=== PATIENT | male | born 1945 | race Caucasian/White ===

== ENCOUNTER 2023-10-24 08:04 | Outpatient (CLI) | payer MEDICARE, OTHER | END 2023-10-24 08:05 | disposition home or self-care (01) | LOC: LAB.R 08:04 | PROVIDERS: ATTEND Nurse Practitioner | DX: L03.115 Cellulitis of right lower limb (principal) | CPT/HCPCS: 87070; 87205 ==

== ENCOUNTER 2023-10-24 16:49 | Emergency (ER) | payer MEDICARE, OTHER ==
--- NOTE | 2023-10-24 19:10 | ED Physician Documentation ---
History of Present Illness - Stated complaint Stated Complaint: RT LEG RASH - Chief complaint Chief Complaint: Ext Problem - Additonal information Additional information: 78-year-old male with history of eczema presents emergency department for right leg rash. Patient has already been seen by dermatology nurse practitioner Reema hirsch who started him on doxycycline, triamcinolone, mupirocin. Patient reports he was advised to come to the emergency department for further evaluation he has a history of cellulitis in that same leg does not report antibiotics he was prescribed in the past. He says he is unsure if he is having fevers or chills at home because he took his temperature after drinking a hot cup of coffee and it was around 100 101 Fahrenheit so he is unsure if that was true or not. Other than that he has denied any chills. He denies any pain to that right lower extremity he says that swelling started about 2 days ago but yesterday it increased in severity he said that he has been soaking in ice bath but his spots of eczema appear to be more purple in color.No calf pain no history of DVTs PD PAST MEDICAL HISTORY - Past Medical History Past Medical History: Yes Cardiovascular: Hypertension Neuro: None Endocrine/Autoimmune: None GI: None : None HEENT: Glaucoma Psych: None Musculoskeletal: None Derm: Eczema Other Past Medical History: melanoma - Past Surgical History Past Surgical History: Yes Ortho: Hip replacement - Allergies Allergies/Adverse Reactions: Allergies Allergy/AdvReac Type Severity Reaction Status Date / Time Penicillins AdvReac Hives Verified 10/24/23 17:03 - Social History Does the pt smoke?: No Smoking Status: Never smoker Does the pt drink ETOH?: Yes Does the pt have substance abuse?: No - Immunizations Immunizations are current?: Yes PD ED PE NORMAL - Vitals Vital signs reviewed: Yes - General General: Alert and oriented X 3, No acute distress, Well developed/nourished - Cardiac Cardiac: RRR, No murmur, No gallop, Strong equal pulses - Respiratory Respiratory: No respiratory distress, Clear bilaterally - Derm Derm: Other (RLE: 4-5 different 5cm non blanchable purpuric spots through RLE. RLE non pitting edema, no calf tenderness, no tenderness with palpation of skin, warm to touch) - Psych Psych: Normal mood, Normal affect Results - Vitals Vitals: Vital Signs - 24 hr 10/24/23 10/24/23 16:54 19:26 Temperature 36.4 C L Heart Rate 66 61 Respiratory 18 19 Rate Blood Pressure 159/121 H 172/110 H O2 Saturation 98 97 Oxygen O2 Source Room air PD Medical Decision Making - ED course ED course: 78-year-old male here for right lower extremity swelling and rash. I spoke with nurse practitioner Reema hirsch The nurse practitioner who sent him and and said that her main concern was that he was having pain out of proportion for her patient continues to decline any pain for myself and said that he was not having any pain at the clinic or at home. S she said she was also concerned about patient having a possible fever and is concern about possible necrotizing fasciitis. Given the patient is afebrile he is not having any pain for myself I have very low concern or suspicion of this. She did tumble and recommended doing a one-time dose of intramuscular Rocephin which I was agreeable to do we did a one-time dose of IM Rocephin patient was told to continue his doxycycline prescription as well as the topicals that she not had prescribed which is triamcinolone and mupirocin. He has a follow-up appointment with her on Monday and he was told to make sure that he does not miss this and he was given ER return precautions. Emphasized the importance of keeping his right lower extremity emphasize above his heart to help with swelling. Departure - Departure Disposition: 01 Home, Self Care Clinical Impression: Cellulitis of right lower extremity Condition: Good Instructions: Cellulitis Dc Comments: Thank you for trusting us with your care. We are treating you with a one-time dose of Rocephin for what is presumed to be cellulitis. Make sure that you frequently throughout the day as well. If you are starting to develop any fevers or chills please come back to the emergency department or severe worsening right lower extremity pain. Follow-up with Reema Hirsch outpatient for further evaluation at your scheduled appointment. continue with the creams that she has prescribedAnd continue with the doxycycline twice a day as prescribed.If you have taken the doxycycline for 48 hours and is not getting any better please come back to the emergency department for further evaluation. Forms: PCP List Discharge Date/Time: 10/24/23 19:55
[2023-10-24] MEDS: cefTRIAXone 1 GM VIAL IM STA (19:18)
[2023-10-24] MEDS: LIDOCAINE 1% 2 ML VIAL MC ONE (19:18)
[2023-10-24 19:35] VITALS: BP 172/110; O2SAT 97
== END 2023-10-24 19:55 | disposition home or self-care (01) ==
LOC: ED 16:49
DX: L03.115 Cellulitis of right lower limb (principal); I10 Essential (primary) hypertension
CPT/HCPCS: 96372; 99283